=== PATIENT | female | born 1980 | race Caucasian/White ===

== ENCOUNTER → 2016-05-05 | Outpatient (CLI) | payer MEDICAID ==
[~2016-05-05] MED LIST: AFRIN PUMPMIST15 ML NS; ALBUTEROL2 PUFFS/17 IN; ALPRAZOLAM1 MG PO; AMOXIL500 MG PO; AZITHROMYCIN250 M1 PO; BACTRIM DS 8001 TAB PO; CIPRO 250MG TA250 MG PO; CIPRO 500MG TA500 MG PO; DIFLUCAN 100MG100 MG PO; KEFLEX 500MG.500 MG PO; LORTAB 5/500 501 TAB PO; LORTAB 500 MG-71 TAB PO; NABUMETONE500 MG PO; NOMEDS *; PERCOCET 5/3251 EACH PO; PHENERGAN 25MG.25 M1 PO; PREDNISONE 10MG10 MG PO; PYRIDIUM 200MG200 MG PO; PYRIDIUM100 MG PO; SEPTRA DS 800 M1 TAB PO; TESSALON PERLE200 MG PO; ULTRAM50 MG PO; VENTOLIN H0.09 MG/AC IH; VICODIN 5/500 T1 TAB PO; VICODIN 7.5/501 EACH PO; VOLTAREN75 MG PO; XANAX 0.25MG0.25 MG PO
[2016-05-05 14:06] LABS: AMPHETAMINES/METAMPHETAMINES POSITIVE ng/mL (<1000)
== END ==
LOC: LAB 13:45
PROVIDERS: Emergency Medicine
DX: Z79.899 Other long term (current) drug therapy (principal)

== ENCOUNTER → 2016-05-23 | Outpatient (CLI) | payer MEDICAID ==
[2016-05-23 18:18] LABS: AMPHETAMINES/METAMPHETAMINES POSITIVE ng/mL (<1000)
== END ==
LOC: LAB 17:03
PROVIDERS: Emergency Medicine
DX: Z79.899 Other long term (current) drug therapy (principal)

== ENCOUNTER 2016-08-19 19:41 | Emergency (ER) | payer MEDICAID ==
[~2016-08-19] VITALS: Ht 160 cm; Wt 56.7 kg
[2016-08-19 19:56] LABS: URINE BILIRUBIN - DIPSTICK NEGATIVE (NEG); URINE BLOOD NEGATIVE (NEG)
[2016-08-19 19:58] LABS: LYMPH # 3.1 K/mm3 (0.7-4.5); LYMPH % 38.4 % (10-50.0)
[2016-08-19 20:23] LABS: BUN 10 mg/dL (7-18)
[2016-08-19 20:24] LABS: GFR (ESTIMATED) 96 ML/MIN (59-)
--- NOTE | 2016-08-19 20:36 | Emergency Room Report ---
History of Present Illness Time Seen by 1950 Presenting Problem in Triage Pt arrived:Walked Presenting Problem:PT RPTS INTERMITTENT CHEST PAIN X 1 WEEK. PT STS "I FELT LIKE I WAS GOING TO SNEEZE AND AFTER THAT I FELT LIKE SOMEONE WAS SITTING ON MY CHEST AND THEY HAVEN'T GOTTEN UP." PT C/O LEFT ANTERIOR CHEST PRESSURE THAT RADIATES TO THE BACK OF HER LEFT SHOULDER. PT CRYING DURING TRIAGE BC "THE PAIN IS UNBEARABLE." PT DENIES ANY PREVIOUS CHEST PAIN. 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 N Clinical Suspician of Infection? N Mental Status: 1 - Regular (Normal Baseline) Sepsis Risk:Possible Sepsis Risk Have you (or family members/close friends) recently traveled outside the [place]? N If Yes, where/when: Have you had exposure to infectious disease within the past month? N TB? Other? Specify: Source patient, RN notes reviewed, family, old records Exam Limitations no limitations Comment pt with no fever or rash and no trauma - lt sided chest pain after sneeze - no known ht disease Cardiac Chest Pain Chest pain indicative of cardiac No Timing/Duration this evening Severity moderate ALLERGIES Coded Allergies: tetracycline (Mild, 07/26/15) Home Medications Reported Medications No Known Home Medications History Medical History General CAD? No Angina: No [place]: No Hypertension? No Hyperlipidemia? No CHF? No DVT? No PE? No COPD? No Asthma? No Anemia? Yes GERD? No Gastric ulcers? No GI Bleed? No Hernia? No Thyroid Problems? No Hypothyroidism? No CVA? No Seizures? No Diabetes? No Renal Insuffiency? No End Stage Renal Disease? No UTI? Yes Stones? Yes BPH? No GB Disease: No Nephritic Syndrome? No Asplenia? No Hepatitis? Yes Sickle Cell Disease? No Arthritis? No Migraines? No Cataracts? No Glaucoma? No MRSA? No HIV? No TB? No Anxiety? No Depression? No Cancer? 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 Respiratory denies cough, denies shortness of breath, denies wheezing Cardiovascular see HPI, chest pain, denies palpitations, denies syncope Gastrointestinal denies abdominal pain, denies diarrhea, denies vomiting Genitourinary denies: dysuria, frequency, hesitancy, hematuria. Musculoskeletal denies back pain, denies joint pain, denies joint swelling, denies neck pain Skin denies rash Psychiatric/Neurological denies headache, denies seizure Physical Exam Vital Signs Vital Signs Date Time Temp Pulse Resp B/P Pulse O2 O2 Flow FiO2 Ox Delivery Rate 08/20 2115 98.0 99 20 110/68 96 08/19 2053 20 08/20 2051 98.0 96 18 109/61 99 08/19 2017 20 08/19 1941 98.0 99 20 149/86 99 - WBC >12,000 or <4,000 or 10% bands? 2 or more SIRS Criteria Met? B/P:109/61 MAP:107 Creatinine >2.0? UA output<0.5ml/kg/hr for 2 hrs? Platelet count >100,000? Lactate >2.0mmol/1? INR >1.2 or PTT > than 60 sec? Evidence of Organ Dysfunction? Provider documented clinical suspician of infection? N Sepsis Criteria Count: 2 Sepsis Risk: Possible Sepsis Risk General Appearance no apparent distress Eye Exam - bilateral eye PERRL, bilateral eye EOMI Ear, Nose, Throat normal ENT inspection Neck supple Respiratory Status No: respiratory distress. Lung Sounds bilateral: lungs clear. 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 No Results/Orders Laboratory Tests 08/19/161999: D-Dimer < 100 08/19/161950: Urine Color YELLOW, Urine Appearance SL CLOUDY, Urine pH 7.5, Ur Specific [place] 1.020, Urine Protein NEGATIVE, Urine Ketones NEGATIVE, Urine Blood NEGATIVE, Urine Nitrate POSITIVE H, Urine Bilirubin NEGATIVE, Urine Urobilinogen 0.2, Ur Leukocyte Esterase 1+ H, Urine RBC NONE, Urine WBC 5-10, Ur Squamous Epith Cells 5-10, Amorphous Sediment 2+, Urine Bacteria 3+, Urine Glucose NEGATIVE 08/19/161944: Sodium 139, Potassium 3.5, Chloride 106, Carbon Dioxide 25, BUN 10, Creatinine 0.7, Estimated Creat Clear 101, Estimated GFR (MDRD) 96, Glucose 81, Calcium 9.0 , Total Bilirubin 0.2, AST 48 H, ALT 107 H, Alkaline Phosphatase 66, Creatine Kinase 61, CK-MB (CK-2) Rel Index 0.8, CK and CKMB Interp < 0.5, Troponin I < 0.02, Total Protein 8.0, Albumin 3.7, Globulin 4.3 H, Albumin/Globulin Ratio 0.9 L, WBC 8.0, RBC 4.51, Hgb 14.0, Hct 43.4, MCV 96.2, RDW 13.1, Plt Count 215 , MPV 5.8 L, Gran % 53.6, Gran # 4.3, Lymphocytes % 38.4, Monocytes % 5.5, Eosinophils % 1.9, Basophils % 0.6, Lymphocytes # 3.1, Monocytes # 0.4, Eosinophils # 0.2, Basophils # 0.1, PUBS MCHC 32.1, MCH 30.9 Current Medication Orders Sig/Caroline Start time Last Medication Dose Route Stop Time Status Admin Diphenhydramine HCl 0 .STK-MED ONE 08/19 2048 DC .ROUTE Methylprednisolone 0 .STK-MED ONE 08/19 2048 DC Sodium Succinate .ROUTE Morphine Sulfate 0 .STK-MED ONE 08/19 2048 DC .ROUTE Sodium Chloride 25 ML .STK-MED ONE 08/19 2048 DC IV Diphenhydramine HCl 25 MG ONCE ONE 08/19 2044 DC 08/19 IV 08/19 Methylprednisolone 125 MG ONCE ONE 08/19 2044 DC 08/19 Sodium Succinate IV 08/19 Morphine Sulfate 4 MG ONCE ONE 08/19 2044 DC 08/19 IV 08/19 Ketorolac 0 .STK-MED ONE 08/20 2015 DC Tromethamine .ROUTE Ketorolac 30 MG ONCE ONE 08/19 2014 DC 08/19 Tromethamine IV 08/19 Sodium Chloride 10 ML PRN PRN 08/20 1999 AC IV 08/20 1949 Orders Procedure Date/time Status D-DIMER 08/19 2008 Complete CULTURE, URINE 08/19 1950 Active ELECTROCARDIOGRAM REQUEST 08/19 1949 Active CHEST(2 VIEWS-NOT PORTABLE) 08/19 1949 Active IV SALINE LOCK 08/19 1949 Active URINALYSIS/COMPLETE 08/19 1949 Complete CBC WITH AUTO DIFF 08/19 1949 Complete CARDIAC ENZYMES 08/19 1949 Complete CHEM 12 PROFILE 08/19 1949 Complete 12 LEAD EKG-TORI (INITIAL) 08/19 UNK Active 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 ST/Twave chgs XRAY/CT/US XRAY/CT/US XRAY chest XR interpretation by reviewed by me Xray Results normal/NAD Departure Departure Time of Disposition 2116 Disposition DC Home or Self Care(routine) Clinical Impression Primary Impression: Chest pain Qualifiers: Chest pain type: unspecified Qualified Code: R07.9 - Chest pain, unspecified Condition STABLE Referrals Hi Christian MD (Family) Patient Instructions DI for Atypical Chest Pain Additional Instructions use meds and see pcp for follow up Discharge Counseling Counseled pt/family regarding diagnosis, test results, medications/RX, follow up needs Prescriptions Current Visit Scripts Prednisone (Prednisone 20MG) 20 MG PO BID #10 TAB HYDROCODONE/ACETAMINOPHEN ([place] 5-325 Tablet) 1 TAB PO Q6HP PRN pain #10 TAB ED Critical Care Critical Care No at 2119
--- NOTE | 2016-08-19 20:36 | Emergency Room Report ---
History of Present Illness Time Seen by 1950 Presenting Problem in Triage Pt arrived:Walked Presenting Problem:PT RPTS INTERMITTENT CHEST PAIN X 1 WEEK. PT STS "I FELT LIKE I WAS GOING TO SNEEZE AND AFTER THAT I FELT LIKE SOMEONE WAS SITTING ON MY CHEST AND THEY HAVEN'T GOTTEN UP." PT C/O LEFT ANTERIOR CHEST PRESSURE THAT RADIATES TO THE BACK OF HER LEFT SHOULDER. PT CRYING DURING TRIAGE BC "THE PAIN IS UNBEARABLE." PT DENIES ANY PREVIOUS CHEST PAIN. 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 N Clinical Suspician of Infection? N Mental Status: 1 - Regular (Normal Baseline) Sepsis Risk:Possible Sepsis Risk Have you (or family members/close friends) recently traveled outside the [place]? N If Yes, where/when: Have you had exposure to infectious disease within the past month? N TB? Other? Specify: Source patient, RN notes reviewed, family, old records Exam Limitations no limitations Comment pt with no fever or rash and no trauma - lt sided chest pain after sneeze - no known ht disease Cardiac Chest Pain Chest pain indicative of cardiac No Timing/Duration this evening Severity moderate ALLERGIES Coded Allergies: tetracycline (Mild, 07/26/15) Home Medications Reported Medications No Known Home Medications History Medical History General CAD? No Angina: No GA: No Hypertension? No Hyperlipidemia? No CHF? No DVT? No PE? No COPD? No Asthma? No Anemia? Yes GERD? No Gastric ulcers? No GI Bleed? No Hernia? No Thyroid Problems? No Hypothyroidism? No CVA? No Seizures? No Diabetes? No Renal Insuffiency? No End Stage Renal Disease? No UTI? Yes Stones? Yes BPH? No GB Disease: No Nephritic Syndrome? No Asplenia? No Hepatitis? Yes Sickle Cell Disease? No Arthritis? No Migraines? No Cataracts? No Glaucoma? No MRSA? No HIV? No TB? No Anxiety? No Depression? No Cancer? 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 Respiratory denies cough, denies shortness of breath, denies wheezing Cardiovascular see HPI, chest pain, denies palpitations, denies syncope Gastrointestinal denies abdominal pain, denies diarrhea, denies vomiting Genitourinary denies: dysuria, frequency, hesitancy, hematuria. Musculoskeletal denies back pain, denies joint pain, denies joint swelling, denies neck pain Skin denies rash Psychiatric/Neurological denies headache, denies seizure Physical Exam Vital Signs Vital Signs Date Time Temp Pulse Resp B/P Pulse O2 O2 Flow FiO2 Ox Delivery Rate 08/20 2115 98.0 99 20 110/68 96 08/19 2053 20 08/20 2051 98.0 96 18 109/61 99 08/19 2017 20 08/19 1941 98.0 99 20 149/86 99 - WBC >12,000 or <4,000 or 10% bands? 2 or more SIRS Criteria Met? B/P:109/61 MAP:107 Creatinine >2.0? UA output<0.5ml/kg/hr for 2 hrs? Platelet count >100,000? Lactate >2.0mmol/1? INR >1.2 or PTT > than 60 sec? Evidence of Organ Dysfunction? Provider documented clinical suspician of infection? N Sepsis Criteria Count: 2 Sepsis Risk: Possible Sepsis Risk General Appearance no apparent distress Eye Exam - bilateral eye PERRL, bilateral eye EOMI Ear, Nose, Throat normal ENT inspection Neck supple Respiratory Status No: respiratory distress. Lung Sounds bilateral: lungs clear. 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 No Results/Orders Laboratory Tests 08/19/161999: D-Dimer < 100 08/19/161950: Urine Color YELLOW, Urine Appearance SL CLOUDY, Urine pH 7.5, Ur Specific [place] 1.020, Urine Protein NEGATIVE, Urine Ketones NEGATIVE, Urine Blood NEGATIVE, Urine Nitrate POSITIVE H, Urine Bilirubin NEGATIVE, Urine Urobilinogen 0.2, Ur Leukocyte Esterase 1+ H, Urine RBC NONE, Urine WBC 5-10, Ur Squamous Epith Cells 5-10, Amorphous Sediment 2+, Urine Bacteria 3+, Urine Glucose NEGATIVE 08/19/161944: Sodium 139, Potassium 3.5, Chloride 106, Carbon Dioxide 25, BUN 10, Creatinine 0.7, Estimated Creat Clear 101, Estimated GFR (MDRD) 96, Glucose 81, Calcium 9.0 , Total Bilirubin 0.2, AST 48 H, ALT 107 H, Alkaline Phosphatase 66, Creatine Kinase 61, CK-MB (CK-2) Rel Index 0.8, CK and CKMB Interp < 0.5, Troponin I < 0.02, Total Protein 8.0, Albumin 3.7, Globulin 4.3 H, Albumin/Globulin Ratio 0.9 L, WBC 8.0, RBC 4.51, Hgb 14.0, Hct 43.4, MCV 96.2, RDW 13.1, Plt Count 215 , MPV 5.8 L, Gran % 53.6, Gran # 4.3, Lymphocytes % 38.4, Monocytes % 5.5, Eosinophils % 1.9, Basophils % 0.6, Lymphocytes # 3.1, Monocytes # 0.4, Eosinophils # 0.2, Basophils # 0.1, PUBS MCHC 32.1, MCH 30.9 Current Medication Orders Sig/Caroline Start time Last Medication Dose Route Stop Time Status Admin Diphenhydramine HCl 0 .STK-MED ONE 08/19 2048 DC .ROUTE Methylprednisolone 0 .STK-MED ONE 08/19 2048 DC Sodium Succinate .ROUTE Morphine Sulfate 0 .STK-MED ONE 08/19 2048 DC .ROUTE Sodium Chloride 25 ML .STK-MED ONE 08/19 2048 DC IV Diphenhydramine HCl 25 MG ONCE ONE 08/19 2044 DC 08/19 IV 08/19 Methylprednisolone 125 MG ONCE ONE 08/19 2044 DC 08/19 Sodium Succinate IV 08/19 Morphine Sulfate 4 MG ONCE ONE 08/19 2044 DC 08/19 IV 08/19 Ketorolac 0 .STK-MED ONE 08/20 2015 DC Tromethamine .ROUTE Ketorolac 30 MG ONCE ONE 08/19 2014 DC 08/19 Tromethamine IV 08/19 Sodium Chloride 10 ML PRN PRN 08/20 1999 AC IV 08/20 1949 Orders Procedure Date/time Status D-DIMER 08/19 2008 Complete CULTURE, URINE 08/19 1950 Active ELECTROCARDIOGRAM REQUEST 08/19 1949 Active CHEST(2 VIEWS-NOT PORTABLE) 08/19 1949 Active IV SALINE LOCK 08/19 1949 Active URINALYSIS/COMPLETE 08/19 1949 Complete CBC WITH AUTO DIFF 08/19 1949 Complete CARDIAC ENZYMES 08/19 1949 Complete CHEM 12 PROFILE 08/19 1949 Complete 12 LEAD EKG-TORI (INITIAL) 08/19 UNK Active 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 ST/Twave chgs XRAY/CT/US XRAY/CT/US XRAY chest XR interpretation by reviewed by me Xray Results normal/NAD Departure Departure Time of Disposition 2116 Disposition DC Home or Self Care(routine) Clinical Impression Primary Impression: Chest pain Qualifiers: Chest pain type: unspecified Qualified Code: R07.9 - Chest pain, unspecified Condition STABLE Referrals iH Christian MD (Family) Patient Instructions DI for Atypical Chest Pain Additional Instructions use meds and see pcp for follow up Discharge Counseling Counseled pt/family regarding diagnosis, test results, medications/RX, follow up needs Prescriptions Current Visit Scripts Prednisone (Prednisone 20MG) 20 MG PO BID #10 TAB HYDROCODONE/ACETAMINOPHEN ([place] 5-325 Tablet) 1 TAB PO Q6HP PRN pain #10 TAB ED Critical Care Critical Care No at 2119
[2016-08-19] MEDS ORDERED: PREDNISONE 20MG20 MG PO (21:19)
[2016-08-19] MEDS ORDERED: NORCO 325 MG-51 TAB PO (21:19)
[2016-08-19 21:33] VITALS: BP 115/77
--- NOTE | 2016-08-19 21:46 | RADIOLOGY REPORT PS360 ---
CHEST(2 VIEWS-NOT PORTABLE) INDICATION: Chest pain COMPARISON: PA and lateral chest 07/26/2015 FINDINGS: The lung diallo are well expanded and appear clear of infiltrate. The cardiomediastinal silhouette and vascularity are normal. The costophrenic angles are clear. The bony thorax is normal. IMPRESSION: Normal chest.
== END 2016-08-19 21:35 | disposition home or self-care (01) ==
LOC: ER 19:41
PROVIDERS: Emergency Medicine
DX: R07.9 Chest pain, unspecified (principal)

== ENCOUNTER → 2016-11-18 | Outpatient (CLI) | payer MEDICAID ==
[~2016-11-18] MED LIST changes: +KLONOPIN 0.5MG0.5 MG NG; +LEXAPRO 20 MG T20 MG PO; +NEIGHBOR PO; +NORCO 325 MG-51 TAB PO; +PHENERGAN12.5 M3 PO; +PREDNISONE 20MG20 MG PO; +SUPRAX400 M1 PO; +TYLENOL ES500 MG PO
--- NOTE | 2016-11-18 16:35 | RADIOLOGY REPORT PS360 ---
CYSTOGRAM - (VOIDING) HISTORY: Recurrent urinary tract infections UTIS ORDERING PHYSICIAN: Bryan Wallace MD PATIENT AGE: 36 years COMPARISON: None FINDINGS: Show Design Supervisor exam is unremarkable. 200 cc of Cystografin was instilled into the urinary bladder and observed under fluoroscopy. Urinary bladder has an unremarkable appearance. Voiding images show no evidence of vesicoureteral reflux. Urethra has an unremarkable appearance. No significant post residual urine apparent. IMPRESSION: Unremarkable voiding cystourethrogram
--- NOTE | 2016-11-18 16:35 | RADIOLOGY REPORT PS360 ---
CYSTOGRAM - (VOIDING) HISTORY: Recurrent urinary tract infections UTIS ORDERING PHYSICIAN: Bryan Wallace MD PATIENT AGE: 36 years COMPARISON: None FINDINGS: Color Repairer exam is unremarkable. 200 cc of Cystografin was instilled into the urinary bladder and observed under fluoroscopy. Urinary bladder has an unremarkable appearance. Voiding images show no evidence of vesicoureteral reflux. Urethra has an unremarkable appearance. No significant post residual urine apparent. IMPRESSION: Unremarkable voiding cystourethrogram
== END ==
LOC: RAD 12:35
DX: N39.0 Urinary tract infection, site not specified (principal)
CPT/HCPCS: Q9966

== ENCOUNTER → 2016-12-17 | Outpatient (CLI) | payer MEDICAID ==
[2016-12-17 12:17] LABS: AMPHETAMINES/METAMPHETAMINES NEGATIVE ng/mL (<1000)
[2016-12-22 16:39] LABS: Opiates Negative (Cutoff=100)
== END ==
LOC: LAB 11:43
PROVIDERS: Emergency Medicine
DX: Z79.899 Other long term (current) drug therapy (principal)

== ENCOUNTER → 2016-12-30 | Outpatient (CLI) | payer MEDICAID ==
[2016-12-30 13:59] LABS: HEMOGLOBIN 13.5 g/dL (12.2-16.2); LYMPH # 2.5 K/mm3 (0.7-4.5); LYMPH % 34.3 % (10-50.0)
[2016-12-30 14:32] LABS: BUN 12 mg/dL (7-18); GFR (ESTIMATED) 82 ML/MIN (59-)
[2016-12-30 19:12] LABS: AMPHETAMINES/METAMPHETAMINES NEGATIVE ng/mL (<1000)
[2017-01-04 03:44] LABS: Buprenorphine Negative (Cutoff=10)
== END ==
LOC: LAB 13:42
PROVIDERS: Emergency Medicine
DX: R53.83 Other fatigue (principal); Z79.899 Other long term (current) drug therapy

== ENCOUNTER → 2017-01-20 | Outpatient (CLI) | payer MEDICAID ==
[2017-01-20 19:37] LABS: AMPHETAMINES/METAMPHETAMINES NEGATIVE ng/mL (<1000)
== END ==
LOC: LAB 18:13
PROVIDERS: Nurse Practitioner Family
DX: Z79.899 Other long term (current) drug therapy (principal)

== ENCOUNTER → 2017-02-23 | Outpatient (CLI) | payer MEDICAID ==
[2017-02-23 13:54] LABS: AMPHETAMINES/METAMPHETAMINES NEGATIVE ng/mL (<1000)
[2017-02-23 14:05] LABS: BUN 11 mg/dL (7-18)
[2017-02-23 14:10] LABS: HEMOGLOBIN 13.8 g/dL (12.2-16.2); LYMPH % 35.8 % (10-50.0)
[2017-02-23 14:18] LABS: GFR (ESTIMATED) 95 ML/MIN (59-)
[2017-03-03 03:36] LABS: Alprazolam Negative (Cutoff=100); Benzodiazepines Negative ng/mL (Cutoff=100); Clonazepam Negative (Cutoff=100); Flurazepam Negative (Cutoff=100); Lorazepam Negative (Cutoff=100); Midazolam Negative (Cutoff=100); Temazepam Negative (Cutoff=100); Triazolam Negative (Cutoff=100)
== END ==
LOC: LAB 12:55
PROVIDERS: Emergency Medicine
DX: R53.83 Other fatigue (principal); Z79.899 Other long term (current) drug therapy
CPT/HCPCS: G0480

== ENCOUNTER → 2017-03-06 | Outpatient (CLI) | payer MEDICAID ==
--- NOTE | 2017-03-06 09:58 | RADIOLOGY REPORT PS360 ---
US RUQ-(ABD LTD)1ORGAN/QUAD/FU COMPARISON: None HISTORY: Epigastric pain TECHNIQUE: Targeted ultrasound right upper quadrant FINDINGS: The liver is normal size and liver parenchyma appears normal. The pancreas is normal. The gallbladder is normal size with partial septation near the neck the gallbladder. There Is a tiny echo Adherent to the gallbladder wall without definite acoustic shadowing this is likely a small cholesterol polyp. The common bile duct is normal caliber. IMPRESSION: Probable cholesterol polyp, no definite gallstones or sludge seen
== END ==
LOC: RAD 06:46
DX: R10.11 Right upper quadrant pain (principal)

== ENCOUNTER → 2017-03-11 | Outpatient (CLI) | payer MEDICAID ==
[2017-03-11 16:35] LABS: AMPHETAMINES/METAMPHETAMINES NEGATIVE ng/mL (<1000)
== END ==
LOC: LAB 15:48
PROVIDERS: Emergency Medicine
DX: N39.0 Urinary tract infection, site not specified (principal); Z79.899 Other long term (current) drug therapy

== ENCOUNTER → 2017-03-20 | Outpatient (CLI) | payer MEDICAID ==
[2017-03-20 16:12] LABS: AMPHETAMINES/METAMPHETAMINES NEGATIVE ng/mL (<1000)
[2017-03-26 14:40] LABS: Alprazolam Negative (Cutoff=100); Benzodiazepines Negative ng/mL (Cutoff=100); Clonazepam Negative (Cutoff=100); Flurazepam Negative (Cutoff=100); Lorazepam Negative (Cutoff=100); Midazolam Negative (Cutoff=100); Temazepam Negative (Cutoff=100); Triazolam Negative (Cutoff=100)
== END ==
LOC: LAB 13:26
PROVIDERS: Emergency Medicine
DX: Z79.899 Other long term (current) drug therapy (principal); B95.2 Enterococcus as the cause of diseases classified elsewhere
CPT/HCPCS: G0480

== ENCOUNTER → 2017-03-25 | Outpatient (CLI) | payer MEDICAID ==
--- NOTE | 2017-03-25 14:04 | RADIOLOGY REPORT PS360 ---
[facility] HEPATOBILIARY SCAN HISTORY: Right upper quadrant pain with nausea RUQ PAIN ORDERING PHYSICIAN: Hi Christian MD PATIENT AGE: 36 years COMPARISON: None DOSE: 8.02 mCi technetium Choletec. Fatty meal/ensure given orally. The patient did vomit after the fatty meal. Patient complained of pain and nausea after fatty meal. FINDINGS: Homogeneous activity is present within the hepatic parenchyma. Activity is present in the gallbladder by 5 minutes. Activity is present in the small bowel by 45 minutes. The gallbladder ejection fraction is calculated to be 58% IMPRESSION: 1. No evidence of common or cystic duct obstruction. 2. Normal gallbladder ejection fraction of 58%
== END ==
LOC: RAD 10:09
DX: R10.11 Right upper quadrant pain (principal)
CPT/HCPCS: A9537